=== PATIENT | female | born 1985 | race Caucasian/White ===

== ENCOUNTER → 2022-07-16 | Emergency (ER) | payer MEDICAID ==
[~2022-07-16] VITALS: Ht 167.6 cm; Wt 73.2 kg
[~2022-07-16] MED LIST: BENZ1LOZ74 PO; dexamethasone sod phosphate 10mg/ml inj PO STA
[2022-07-16 14:31] VITALS: BP 120/79
== END | disposition home or self-care (01) ==
LOC: ER 14:01
DX: J02.9 Acute pharyngitis, unspecified (principal)
CPT/HCPCS: 87077; 87081; 87880; 99283; J1100